=== PATIENT | female | born 1960 | race Caucasian/White ===

== ENCOUNTER 2019-04-06 14:07 | Outpatient (CLI) | payer BC, SELFPAY ==
--- NOTE | 2019-04-06 14:17 | XRR_ITS ---
PROCEDURE INFORMATION: Exam: XR Left Hand Exam date and time: 04/06/2019 2:30 PM Age: 58 years old Clinical indication: Pain; Hand; Left; Additional info: L hand pain/arthritis TECHNIQUE: Imaging protocol: XR Left hand. Views: 3 or more views. COMPARISON: No relevant prior studies available. FINDINGS: Bones/joints: Moderate osteoarthritis 1st carpal-metacarpal joint with joint space narrowing and reactive sclerosis. Mild osteoarthritis 2nd, 3rd and 4th finger DIP joints with minimal joint space narrowing and bony overgrowth. Soft tissues: Normal. XR/XR hand LT min 3V* [id number] IMPRESSION: Moderate osteoarthritis 1st carpal-metacarpal joint with joint space narrowing and reactive sclerosis. Mild osteoarthritis 2nd, 3rd and 4th finger DIP joints with minimal joint space narrowing and bony overgrowth.
== END 2019-04-06 14:08 | disposition home or self-care (01) ==
LOC: RAD 14:11
PROVIDERS: Family Provider Family Medicine; PCP Family Medicine; Visit Provider Family Medicine
DX: M19.042 Primary osteoarthritis, left hand (principal)
CPT/HCPCS: 73130

== ENCOUNTER 2020-01-25 08:07 | Outpatient (CLI) | payer BC, SELFPAY ==
--- NOTE | 2020-01-25 08:54 | MR_ITS ---
WS: [id number] MRI CERVICAL SPINE with and without contrast. HISTORY: CERVICAL RADICULOPATHY COMPARISON: 03/23/2013 Straightening of the normal cervical lordosis. Very mild stable anterior wedging of T4. No marrow glenn ma or fractures. 2 mm anterolisthesis of C3. Moderate degenerative disc space narrowing and desiccation and osteophytosis throughout the thoracic spine. Most significant degenerative changes at C5-6 and C6-7. Craniocervical junction, C1 and C2 relationship, odontoid process and soft tissues are normal. C2-C3: Normal. C3-C4: Mild osteophytic ridging and disc bulging. Mild LEFT foraminal stenosis. C4-C5: Mild osteophytic ridging and annular disc bulging. Facet joint arthritis greatest on the LEFT with slight encroachment into the posterior lateral thecal sac. Mild LEFT foraminal stenosis. C5-C6: Diffuse moderate annular disc bulging and osteophytic ridging. Disc osteophyte encroaches and displaces the ventral CSF. There is slight contact on the ventral cord. Mild to moderate central and bilateral foraminal stenosis. C6-C7: Mild annular disc bulging and osteophytic ridging. Disc osteophyte complex causing mild LEFT f oraminal stenosis. C7-T1: LEFT foraminal disc osteophyte complex causing moderate foraminal stenosis. No discitis or osteomyelitis. MR/MR cervical spine wo/w [id number] IMPRESSION: 1. Multilevel moderate cervical spondylosis. Most significant changes at C5-6. 2. Moderate central and bilateral foraminal stenosis at C5-C6 due to combinati on of osteophytic ridging and disc disease. 3. Moderate LEFT foraminal stenosis at C7-T1. 4. Mild LEFT foraminal stenosis at C3-4, C4-5 and C6-7. 5. Minimal progression of stenoses since 03/23/2013.
== END 2020-01-25 08:08 | disposition home or self-care (01) ==
LOC: RADWPI 08:11
PROVIDERS: PCP Family Medicine; Visit Provider Family Medicine
DX: M54.12 Radiculopathy, cervical region (principal); M47.812 Spondylosis without myelopathy or radiculopathy, cervical region; M48.02 Spinal stenosis, cervical region; M48.03 Spinal stenosis, cervicothoracic region
CPT/HCPCS: 72156; A9579

== ENCOUNTER → 2021-11-19 08:46 | Outpatient (BNVA) | payer BC, SELFPAY | PROVIDERS: PCP Family Medicine; Visit Provider Family Medicine | DX: Z00.00 Encounter for general adult medical examination without abnormal findings (principal) | CPT/HCPCS: 80053; 80061 ==